=== PATIENT | male | born 1960 | race Two or more races ===

== ENCOUNTER → 2016-12-19 | Outpatient (CLI) | payer BC, OTHER ==
[~2016-12-19] MED LIST: CARV3.1212 PO; CARV3.122 PO; HYDR2TAB13 PO; HYDR8TAB PO; LEVO500T33 PO; MORP30TA3 PO; OMNIPAQUE 350 MG/ML, 100ML BOTTLE ONE; OXYC-229 PO; PANT40TA3 PO; PANT40TA5 PO
== END | disposition home or self-care (01) ==
LOC: CFH 11:53
PROVIDERS: ATTEND Internal Medicine Hematology & Oncology
DX: C18.7 Malignant neoplasm of sigmoid colon (principal); J90 Pleural effusion, not elsewhere classified; I31.3 Pericardial effusion (noninflammatory); J98.4 Other disorders of lung; R59.0 Localized enlarged lymph nodes; N13.39 Other hydronephrosis; Z90.49 Acquired absence of other specified parts of digestive tract; Z93.2 Ileostomy status
CPT/HCPCS: 71260; 74177; Q9967

== ENCOUNTER → 2016-12-24 | Outpatient (CLI) | payer BC ==
[~2016-12-24] MED LIST changes: +CAPE500T24 PO; +CARV6.2512 PO; -OMNIPAQUE 350 MG/ML, 100ML BOTTLE ONE; +ONDA4SOL2 PO
== END | disposition home or self-care (01) ==
LOC: CVU 13:20
PROVIDERS: ATTEND Internal Medicine Cardiovascular Disease
DX: I31.3 Pericardial effusion (noninflammatory) (principal); I08.1 Rheumatic disorders of both mitral and tricuspid valves; I48.91 Unspecified atrial fibrillation; Z85.038 Personal history of other malignant neoplasm of large intestine; Z92.21 Personal history of antineoplastic chemotherapy
CPT/HCPCS: 93306

== ENCOUNTER 2016-12-26 06:56 | Inpatient (IN) | payer BC ==
[~2016-12-26] VITALS: Ht 167.6 cm; Wt 91.8 kg
[~2016-12-26 06:56] MED LIST changes: -CAPE500T24 PO; -CARV6.2512 PO; -ONDA4SOL2 PO
[2016-12-26 07:43] VITALS: BP 117/67
[2016-12-26] MEDS ORDERED: CARV6.2512 PO (07:48)
[2016-12-26] MEDS ORDERED: CAPE500T24 PO (07:49)
[2016-12-26] MEDS ORDERED: ONDA4SOL2 PO (07:51)
[2016-12-26 08:14] LABS: BLOOD UREA NITROGEN 10 mg/dL (7-18)
[2016-12-26] MEDS ORDERED: FENTANYL PF 250 MCG/5ML ONE (08:19)
[2016-12-26] MEDS ORDERED: MIDAZOLAM 1 MG/ML, 5ML ONE (08:19)
[2016-12-26] MEDS ORDERED: LIDOCAINE 2%, 20ML ONE (08:39)
[2016-12-26 09:47] LABS: CYTOLOGY BODY FLUID RECD INTO PATHOLOGY; CYTOLOGY BODY FLUID SOURCE PERICARDIAL FLUID
[2016-12-26 10:00] VITALS: BP 114/77
[2016-12-26] MEDS: CARVEDILOL 6.25 MG TABLET PO SCH (17:14)
[2016-12-26] MEDS ORDERED: morphine SULFATE 10 MG/ML, 1ML IVPush ONE (17:30)
[2016-12-26] MEDS ORDERED: morphine SULFATE 10 MG/ML, 1ML ONE (17:34)
[2016-12-26] MEDS: morphine SULFATE 10 MG/ML, 1ML IVPush PRN ×2 (20:38→23:12)
[2016-12-26] MEDS: HYDROmorphone 2MG TABLET PO PRN ×2 (20:38→23:12)
[2016-12-27] MEDS: morphine SULFATE 10 MG/ML, 1ML IVPush PRN (03:11)
[2016-12-27] MEDS: HYDROmorphone 2MG TABLET PO PRN ×4 (03:11→19:41)
[2016-12-27] MEDS: CARVEDILOL 6.25 MG TABLET PO SCH ×2 (06:02→17:27)
[2016-12-27] MEDS: PANTOPROZOLE 40MG TABLET PO SCH (07:20)
[2016-12-27] MEDS ORDERED: KETOROLAC 30 MG/1 ML IV ONE (13:00)
[2016-12-27] MEDS ORDERED: KETOROLAC 30 MG/1 ML IVPush ONE (21:30)
[2016-12-28] MEDS: HYDROmorphone 2MG TABLET PO PRN ×3 (03:49→16:04)
[2016-12-28] MEDS: CARVEDILOL 6.25 MG TABLET PO SCH ×2 (06:00→18:00)
[2016-12-28] MEDS: PANTOPROZOLE 40MG TABLET PO SCH (07:48)
[2016-12-29] MEDS: HYDROmorphone 2MG TABLET PO PRN (05:45)
[2016-12-29] MEDS: CARVEDILOL 6.25 MG TABLET PO SCH (05:55)
[2016-12-29] MEDS: PANTOPROZOLE 40MG TABLET PO SCH (08:34)
== END 2016-12-29 14:35 | disposition home or self-care (01) | DRG 315 ==
LOC: CACL 06:56 → ORIP 09:35 → CCU 09:46
PROVIDERS: ADMIT Internal Medicine Cardiovascular Disease; ATTEND Internal Medicine Cardiovascular Disease
PROC: 0W9D30Z Drainage of Pericardial Cavity with Drainage Device, Percutaneous Approach (ICD-10-PCS; principal; 2016-12-26)
DX: I31.3 Pericardial effusion (noninflammatory) (principal); I48.92 Unspecified atrial flutter; C18.9 Malignant neoplasm of colon, unspecified; I48.91 Unspecified atrial fibrillation; Z90.49 Acquired absence of other specified parts of digestive tract; Z93.3 Colostomy status; Z82.49 Family history of ischemic heart disease and other diseases of the circulatory system; Z88.6 Allergy status to analgesic agent; Z88.0 Allergy status to penicillin
CPT/HCPCS: 33010; 36415; 76930; 80048; 83615; 84157; 85025; 85610; 85730; 87070; 87081; 87116; 87205; 87206; 88112; 88305; 89051; 93308; 93321; C1729; J2250; J3010; J3490; J2270

== ENCOUNTER → 2017-01-23 | Outpatient (CLI) | payer BC ==
[~2017-01-23] MED LIST changes: +CAPE500T24 PO; +CARV6.2512 PO; +ONDA4SOL2 PO
== END | disposition home or self-care (01) ==
LOC: PETCFH 07:30
PROVIDERS: ATTEND Internal Medicine Hematology & Oncology
DX: C18.7 Malignant neoplasm of sigmoid colon (principal); Z87.81 Personal history of (healed) traumatic fracture
CPT/HCPCS: 78306; A9503

== ENCOUNTER → 2017-01-27 | Outpatient (CLI) | payer BC ==
[~2017-01-27] MED LIST changes: +OMNIPAQUE 350 MG/ML, 100ML BOTTLE ONE
== END | disposition home or self-care (01) ==
LOC: CFH 01-23 08:36
PROVIDERS: ATTEND Internal Medicine Hematology & Oncology
DX: J90 Pleural effusion, not elsewhere classified (principal); I31.3 Pericardial effusion (noninflammatory); R91.8 Other nonspecific abnormal finding of lung field; R59.0 Localized enlarged lymph nodes; C18.7 Malignant neoplasm of sigmoid colon; N13.30 Unspecified hydronephrosis; M51.36 Other intervertebral disc degeneration, lumbar region; I10 Essential (primary) hypertension; I37.1 Nonrheumatic pulmonary valve insufficiency; I34.0 Nonrheumatic mitral (valve) insufficiency; M51.34 Other intervertebral disc degeneration, thoracic region
CPT/HCPCS: 71260; 74177; 93306; Q9967

== ENCOUNTER → 2017-04-28 | Outpatient (CLI) | payer BC ==
[~2017-04-28] MED LIST changes: -HYDR2TAB13 PO; +HYDR2TAB29 PO; -LEVO500T33 PO; +LEVO500T47 PO; -OMNIPAQUE 350 MG/ML, 100ML BOTTLE ONE; -OXYC-229 PO; +OXYC-307 PO
== END | disposition home or self-care (01) ==
LOC: CFH 12:09 → EDSTATUS 13:00
PROVIDERS: ATTEND Internal Medicine Cardiovascular Disease
DX: I08.1 Rheumatic disorders of both mitral and tricuspid valves (principal); I31.3 Pericardial effusion (noninflammatory); I10 Essential (primary) hypertension; Z85.038 Personal history of other malignant neoplasm of large intestine
CPT/HCPCS: 93306

== ENCOUNTER → 2017-04-29 | Outpatient (CLI) | payer BC | END | disposition home or self-care (01) | LOC: RAD 12:31 | PROVIDERS: ATTEND Internal Medicine Hematology & Oncology | DX: K43.9 Ventral hernia without obstruction or gangrene (principal); R59.0 Localized enlarged lymph nodes; R91.8 Other nonspecific abnormal finding of lung field; I25.10 Atherosclerotic heart disease of native coronary artery without angina pectoris; M51.36 Other intervertebral disc degeneration, lumbar region; C18.7 Malignant neoplasm of sigmoid colon; Z93.2 Ileostomy status | CPT/HCPCS: 71260; 74177; J1642 ==

== ENCOUNTER → 2017-07-27 | Outpatient (CLI) | payer BC ==
[2017-07-27 13:06] LABS: HEMATOCRIT 38.6 % (39.2-51.8); WHITE BLOOD COUNT 6.4 x10^3/uL (3.4-10)
[2017-07-27 13:32] LABS: ASPARTATE AMINO TRANSFERASE 40 U/L (15-37); BLOOD UREA NITROGEN 7 mg/dL (7-18)
== END | disposition home or self-care (01) ==
LOC: STAR 12:09
PROVIDERS: ATTEND Surgery
DX: Z01.818 Encounter for other preprocedural examination (principal)
CPT/HCPCS: 36415; 80053; 85025; 93005

== ENCOUNTER 2017-10-19 11:21 | Inpatient (IN) | payer BC ==
[~2017-10-19] VITALS: Ht 167.6 cm; Wt 92.8 kg
[~2017-10-19 11:21] MED LIST changes: +AMIO200T42 PO
[2017-10-19 13:12] LABS: BASOPHILS % (AUTO) 0 % (0-1); EOSINOPHILS # (AUTO) 0.01 x10^3/uL (0-0.4); EOSINOPHILS % (AUTO) 0 % (1-7); LYMPHOCYTES # (AUTO) 0.96 x10^3/uL (1-3.4); LYMPHOCYTES % (AUTO) 8 % (22-44); MD NO; MEAN CORPUSCULAR HEMOGLOBIN 25.1 pg (27.5-34.5); MEAN CORPUSCULAR HGB CONC 31.4 g/dL (33.2-36.2); MEAN CORPUSCULAR VOLUME 79.9 fL (81-97); MONOCYTES # (AUTO) 1.43 x10^3/uL (0.2-0.8); MONOCYTES % (AUTO) 12 % (2-9); NEUTROPHILS # (AUTO) 10.04 x10^3/uL (1.8-6.8); NEUTROPHILS % (AUTO) 81 % (42-75); PLATELET COUNT 308 x10^3/uL (130-400); RED BLOOD COUNT 4.86 x10^6/uL (4.38-5.82); RED CELL DISTRIBUTION WIDTH 18.8 % (9.4-14.8)
[2017-10-19 13:23] LABS: ALBUMIN 3.3 g/dL (3.4-5.0); ANION GAP 13 mmol/L (5-15); CALCIUM 8.6 mg/dL (8.5-10.1); CHLORIDE 107 mmol/L (98-107)
[2017-10-19 13:28] LABS: TROPONIN I 0.016 ng/mL (0.000-0.045)
[2017-10-19] MEDS ORDERED: FUROSEMIDE 20 MG/2 ML IV ONE (13:30)
[2017-10-19] MEDS ORDERED: HEPARIN 5,000 UNITS/ML, 1ML ONE (13:30)
[2017-10-19] MEDS ORDERED: HEPARIN 5,000 UNITS/ML, 1ML IV ONE (13:30)
[2017-10-19] MEDS ORDERED: HEPARIN 25,000 UNITS/500ML PMX 500 ML ONE (13:30)
[2017-10-19] MEDS ORDERED: SODIUM CHLORIDE 0.9%, 500ML IVBOLUS ONE (13:30)
[2017-10-19] MEDS ORDERED: FUROSEMIDE 40 MG/4 ML IVP ONE (14:00)
[2017-10-19] MEDS ORDERED: methylPREDNISolone SOD SUCC 125 MG/2 ML IVP ONE (14:00)
[2017-10-19] MEDS ORDERED: ALBUTEROL/IPRATROPIUM 2.5MG/0.5MG, 3 ML NPPB ONE (14:00)
[2017-10-19 14:18] LABS: BASOPHILS # (AUTO) 0.01 x10^3/uL (0-0.1); BASOPHILS % (AUTO) 0 % (0-1); EOSINOPHILS # (AUTO) 0.01 x10^3/uL (0-0.4); EOSINOPHILS % (AUTO) 0 % (1-7); LYMPHOCYTES # (AUTO) 0.71 x10^3/uL (1-3.4); LYMPHOCYTES % (AUTO) 7 % (22-44); MD NO; MEAN CORPUSCULAR HEMOGLOBIN 25.4 pg (27.5-34.5); MEAN CORPUSCULAR HGB CONC 31.8 g/dL (33.2-36.2); MEAN PLATELET VOLUME 8.1 fL (7.4-10.4); MONOCYTES # (AUTO) 1.18 x10^3/uL (0.2-0.8); MONOCYTES % (AUTO) 11 % (2-9); NEUTROPHILS # (AUTO) 8.68 x10^3/uL (1.8-6.8); NEUTROPHILS % (AUTO) 82 % (42-75); PLATELET COUNT 295 x10^3/uL (130-400); RED BLOOD COUNT 4.34 x10^6/uL (4.38-5.82); RED CELL DISTRIBUTION WIDTH 18.2 % (9.4-14.8)
[2017-10-19 14:21] LABS: ALANINE AMINOTRANSFERASE 174 U/L (12-78); ALBUMIN 2.9 g/dL (3.4-5.0); ANION GAP 11 mmol/L (5-15); CALCIUM 8.3 mg/dL (8.5-10.1); CHLORIDE 107 mmol/L (98-107); CREATININE 1.38 mg/dL (0.7-1.3)
[2017-10-19 14:25] LABS: ALKALINE PHOSPHATASE 126 U/L (45-117); BILIRUBIN,TOTAL 1.1 mg/dL (0.2-1.0); TOTAL PROTEIN 7.1 g/dL (6.4-8.2); TROPONIN I < 0.015 ng/mL (0.000-0.045)
[2017-10-19] MEDS: HEPARIN 25,000 UNITS/500ML PMX 500 ML IV PRN (14:54)
[2017-10-19] MEDS ORDERED: OMEP20TA62 PO (14:57)
[2017-10-19] MEDS ORDERED: HYDROmorphone 1 MG/ML, 1ML IV ONE (15:00)
[2017-10-19] MEDS ORDERED: HYDROmorphone 2 MG/ML, 1ML ONE (15:01)
[2017-10-19] MEDS ORDERED: FUROSEMIDE 20 MG/2 ML ONE ×2 (15:29→15:51)
[2017-10-19] MEDS ORDERED: FUROSEMIDE 40 MG/4 ML IV ONE (16:00)
[2017-10-19] MEDS ORDERED: ONDANSETRON 4 MG TABLET PO PRN (16:00)
[2017-10-19 17:07] VITALS: BP 140/86
[2017-10-19 18:01] LABS: ABSOLUTE RETICS # 0.124 x10^6/uL (0.5-1.5); RED BLOOD COUNT 4.35 x10^6/uL (4.38-5.82); RETICULOCYTE COUNT % 2.84 % (0.5-1.5)
[2017-10-19 19:28] VITALS: BP 116/81
[2017-10-19] MEDS: FUROSEMIDE 40 MG/4 ML IV SCH (19:47)
[2017-10-19] MEDS: CARVEDILOL 6.25 MG TABLET PO SCH (20:59)
[2017-10-19] MEDS: HEPARIN 5,000 UNITS/ML, 1ML IV PRN (21:40)
[2017-10-19] MEDS: HYDROmorphone 2MG TABLET PO PRN (21:50)
[2017-10-20 01:23] VITALS: BP 110/74
[2017-10-20] MEDS: HYDROmorphone 2MG TABLET PO PRN ×2 (02:31→08:09)
[2017-10-20 04:12] LABS: BASOPHILS % (AUTO) 0 % (0-1); EOSINOPHILS # (AUTO) 0.01 x10^3/uL (0-0.4); EOSINOPHILS % (AUTO) 0 % (1-7); LYMPHOCYTES # (AUTO) 0.76 x10^3/uL (1-3.4); LYMPHOCYTES % (AUTO) 8 % (22-44); MD NO; MEAN CORPUSCULAR HEMOGLOBIN 25.1 pg (27.5-34.5); MEAN CORPUSCULAR HGB CONC 31.7 g/dL (33.2-36.2); MEAN CORPUSCULAR VOLUME 79.2 fL (81-97); MEAN PLATELET VOLUME 7.8 fL (7.4-10.4); MONOCYTES % (AUTO) 12 % (2-9); NEUTROPHILS # (AUTO) 7.62 x10^3/uL (1.8-6.8); NEUTROPHILS % (AUTO) 80 % (42-75); PLATELET COUNT 278 x10^3/uL (130-400); RED BLOOD COUNT 4.04 x10^6/uL (4.38-5.82); RED CELL DISTRIBUTION WIDTH 18.3 % (9.4-14.8)
[2017-10-20 04:23] LABS: ANION GAP 11 mmol/L (5-15); CALCIUM 7.8 mg/dL (8.5-10.1); CHLORIDE 106 mmol/L (98-107)
[2017-10-20 04:24] LABS: CREATININE 1.58 mg/dL (0.7-1.3)
[2017-10-20] MEDS: HEPARIN 5,000 UNITS/ML, 1ML IV PRN ×3 (05:08→19:20)
[2017-10-20 06:24] VITALS: BP 96/73
[2017-10-20 08:00] VITALS: BP 100/68
[2017-10-20] MEDS: FUROSEMIDE 40 MG/4 ML IV SCH ×2 (08:09→16:14)
[2017-10-20] MEDS: PANTOPROZOLE 40MG TABLET PO SCH (08:09)
[2017-10-20] MEDS: CARVEDILOL 6.25 MG TABLET PO SCH ×2 (09:00→20:05)
[2017-10-20 09:36] LABS: MICROSCOPIC NOT IND
[2017-10-20 09:41] LABS: CULTURE INDICATED? NO
[2017-10-20] MEDS ORDERED: IRON SUCROSE COMPLEX 100MG/5ML IV SCH (11:30)
[2017-10-20 11:32] VITALS: BP 97/69
[2017-10-20] MEDS: HEPARIN 25,000 UNITS/500ML PMX 500 ML IV PRN (14:16)
[2017-10-20] MEDS ORDERED: IRON DEXTRAN IV PER PHARMACY IV PRN (19:00)
[2017-10-20 19:09] VITALS: BP 100/68
[2017-10-20] MEDS ORDERED: EPINEPHRINE 1 MG/ML, 1ML IM PRN (20:00)
[2017-10-20] MEDS ORDERED: IRON DEXTRAN COMPLEX 25 MG in SODIUM CHLORIDE 0.9% 50 ML IV ONE (20:00)
[2017-10-20] MEDS ORDERED: IRON DEXTRAN COMPLEX 1,550 MG in SODIUM CHLORIDE 0.9% 250 ML IV ONE (20:30)
[2017-10-20 22:05] LABS: OCCULT BLOOD NEGATIVE (NEGATIVE)
[2017-10-21 01:58] LABS: ALBUMIN 2.7 g/dL (3.4-5.0); ANION GAP 12 mmol/L (5-15); CALCIUM 7.7 mg/dL (8.5-10.1); CHLORIDE 103 mmol/L (98-107); CREATININE 1.53 mg/dL (0.7-1.3); MEAN CORPUSCULAR HEMOGLOBIN 25.4 pg (27.5-34.5); MEAN CORPUSCULAR HGB CONC 32.1 g/dL (33.2-36.2); MEAN PLATELET VOLUME 7.7 fL (7.4-10.4); PLATELET COUNT 314 x10^3/uL (130-400); RED BLOOD COUNT 3.99 x10^6/uL (4.38-5.82); RED CELL DISTRIBUTION WIDTH 18.2 % (9.4-14.8)
[2017-10-21 02:00] LABS: ALKALINE PHOSPHATASE 113 U/L (45-117); BILIRUBIN,TOTAL 0.6 mg/dL (0.2-1.0); TOTAL PROTEIN 6.7 g/dL (6.4-8.2)
[2017-10-21 02:01] LABS: ALANINE AMINOTRANSFERASE 113 U/L (12-78)
[2017-10-21 02:09] VITALS: BP 149/78
[2017-10-21] MEDS: HEPARIN 5,000 UNITS/ML, 1ML IV PRN ×4 (02:16→23:41)
[2017-10-21 02:20] LABS: BASOPHILS % (AUTO) 0 % (0-1); EOSINOPHILS # (AUTO) 0.04 x10^3/uL (0-0.4); EOSINOPHILS % (AUTO) 1 % (1-7); LYMPHOCYTES # (AUTO) 0.84 x10^3/uL (1-3.4); LYMPHOCYTES % (AUTO) 10 % (22-44); MD SCAN; MONOCYTES # (AUTO) 1.15 x10^3/uL (0.2-0.8); MONOCYTES % (AUTO) 13 % (2-9); NEUTROPHILS # (AUTO) 6.51 x10^3/uL (1.8-6.8); NEUTROPHILS % (AUTO) 76 % (42-75)
[2017-10-21 07:06] VITALS: BP 106/71
[2017-10-21] MEDS: PANTOPROZOLE 40MG TABLET PO SCH (07:49)
[2017-10-21] MEDS: CARVEDILOL 6.25 MG TABLET PO SCH ×2 (07:49→21:08)
[2017-10-21] MEDS: FUROSEMIDE 40 MG/4 ML IV SCH ×2 (07:49→16:56)
[2017-10-21] MEDS ORDERED: METOLAZONE 5 MG TABLET ONE (08:42)
[2017-10-21] MEDS: HEPARIN 25,000 UNITS/500ML PMX 500 ML IV PRN (12:52)
[2017-10-21 13:45] VITALS: BP 96/67
[2017-10-21] MEDS: METOLAZONE 5 MG TABLET PO SCH (16:23)
[2017-10-21] MEDS ORDERED: METOLAZONE 5 MG TABLET PO SCH ×2 (17:00)
[2017-10-21 19:10] VITALS: BP 102/61
[2017-10-21] MEDS ORDERED: KETOROLAC 30 MG/1 ML IVPush PRN (22:00)
[2017-10-21] MEDS ORDERED: HYDROmorphone 4MG TABLET PO ONE (22:00)
[2017-10-21] MEDS ORDERED: HYDROmorphone 2MG TABLET ONE (22:56)
[2017-10-21 22:59] VITALS: BP 101/69
[2017-10-22 01:46] VITALS: BP 116/79
[2017-10-22 06:25] LABS: ALBUMIN 2.6 g/dL (3.4-5.0); ANION GAP 11 mmol/L (5-15); CALCIUM 8.4 mg/dL (8.5-10.1); CHLORIDE 98 mmol/L (98-107); CREATININE 1.45 mg/dL (0.7-1.3)
[2017-10-22 06:27] LABS: ALKALINE PHOSPHATASE 118 U/L (45-117); TOTAL PROTEIN 6.7 g/dL (6.4-8.2)
[2017-10-22] MEDS: HEPARIN 5,000 UNITS/ML, 1ML IV PRN (06:30)
[2017-10-22] MEDS: HEPARIN 25,000 UNITS/500ML PMX 500 ML IV PRN (06:31)
[2017-10-22 06:39] LABS: ALANINE AMINOTRANSFERASE 99 U/L (12-78)
[2017-10-22 07:21] VITALS: BP 93/66
[2017-10-22] MEDS ORDERED: ENOXAPARIN 100 MG/ML SQ SCH (08:00)
[2017-10-22] MEDS: METOLAZONE 5 MG TABLET PO SCH (08:06)
[2017-10-22] MEDS: POTASSIUM CHLORIDE 20 MEQ PACKET PO SCH ×2 (08:08→13:18)
[2017-10-22] MEDS: CARVEDILOL 6.25 MG TABLET PO SCH (08:09)
[2017-10-22] MEDS: PANTOPROZOLE 40MG TABLET PO SCH (08:09)
[2017-10-22] MEDS: FUROSEMIDE 40 MG/4 ML IV SCH (08:31)
[2017-10-22] MEDS ORDERED: ENOX100S4 SQ (10:55)
[2017-10-22] MEDS ORDERED: FLU VACC QS2017-18 (36MOS+) UP/PF 0.5 ML IM-VACC ONE (11:30)
== END 2017-10-22 14:30 | disposition home or self-care (01) | DRG 299 ==
LOC: ED 15:29 → 3NW 15:32 → ED 15:34 → 3NW 15:35 → 4WST 10-20 06:42 → DCLOUNGE 10-22 14:10
PROVIDERS: ADMIT Internal Medicine; ATTEND Internal Medicine
DX: I82.433 Acute embolism and thrombosis of popliteal vein, bilateral (principal); I26.99 Other pulmonary embolism without acute cor pulmonale; J81.1 Chronic pulmonary edema; J90 Pleural effusion, not elsewhere classified; N17.9 Acute kidney failure, unspecified; E44.0 Moderate protein-calorie malnutrition; C78.6 Secondary malignant neoplasm of retroperitoneum and peritoneum; E87.2 Acidosis; E86.0 Dehydration; I07.1 Rheumatic tricuspid insufficiency; E83.51 Hypocalcemia; I10 Essential (primary) hypertension; I48.0 Paroxysmal atrial fibrillation; K22.4 Dyskinesia of esophagus; D50.9 Iron deficiency anemia, unspecified; R13.14 Dysphagia, pharyngoesophageal phase; Z66 Do not resuscitate; Z85.038 Personal history of other malignant neoplasm of large intestine; Z68.33 Body mass index [BMI] 33.0-33.9, adult; Z23 Encounter for immunization; Z92.21 Personal history of antineoplastic chemotherapy; Z90.49 Acquired absence of other specified parts of digestive tract; Z88.5 Allergy status to narcotic agent; Z88.6 Allergy status to analgesic agent; Z88.0 Allergy status to penicillin
CPT/HCPCS: 36415; 71046; 71275; 74220; 76700; 80048; 80053; 80074; 81003; 82040; 82272; 82728; 83540; 83550; 83605; 83735; 83880; 84484; 85018; 85025; 85045; 85520; 87040; 90686; 93005; 93306; 93970; 96365; 96375; J1170; J1644; J1650; J1750; J1756; J1940; Q0162; J7050

== ENCOUNTER → 2017-10-29 | Outpatient (CLI) | payer BC ==
[~2017-10-29] MED LIST changes: +ENOX100S4 SQ; +OMEP20TA62 PO; +OMNIPAQUE 350 MG/ML, 100ML BOTTLE ONE
== END | disposition home or self-care (01) ==
LOC: CFH 08:44
PROVIDERS: ATTEND Internal Medicine Hematology & Oncology
DX: I26.99 Other pulmonary embolism without acute cor pulmonale (principal); I31.3 Pericardial effusion (noninflammatory); J18.1 Lobar pneumonia, unspecified organism; J90 Pleural effusion, not elsewhere classified; R59.0 Localized enlarged lymph nodes; C18.7 Malignant neoplasm of sigmoid colon
CPT/HCPCS: 71260; 74177; Q9967

== ENCOUNTER 2017-11-01 18:58 | Inpatient (IN) | payer BC ==
[~2017-11-01] VITALS: Ht 167.6 cm; Wt 90.2 kg
[~2017-11-01 18:58] MED LIST changes: -OMNIPAQUE 350 MG/ML, 100ML BOTTLE ONE
[2017-11-01] MEDS ORDERED: ZIPRASIDONE 20 MG INJ IM ONE (19:30)
[2017-11-01] MEDS ORDERED: SODIUM CHLORIDE FLUSH 10ML SYR IVF ONE (19:30)
[2017-11-01 19:44] LABS: MEAN CORPUSCULAR HEMOGLOBIN 26.5 pg (27.5-34.5); MEAN CORPUSCULAR HGB CONC 31.9 g/dL (33.2-36.2); MEAN CORPUSCULAR VOLUME 83.2 fL (81-97); MEAN PLATELET VOLUME 8.3 fL (7.4-10.4); PLATELET COUNT 186 x10^3/uL (130-400); RED BLOOD COUNT 5.47 x10^6/uL (4.38-5.82); RED CELL DISTRIBUTION WIDTH 28.1 % (9.4-14.8)
[2017-11-01 19:51] LABS: PROTHROMBIN TIME 14.7 Seconds (9.6-11.5)
[2017-11-01 19:52] LABS: INTERNATIONAL NORMALIZED RATIO 1.42 (0.93-1.1)
[2017-11-01 19:56] LABS: ALBUMIN 3.4 g/dL (3.4-5.0); ANION GAP 15 mmol/L (5-15); CALCIUM 8.6 mg/dL (8.5-10.1); CHLORIDE 96 mmol/L (98-107)
[2017-11-01 19:57] LABS: ANISOCYTOSIS 2+; BASOPHILS # (AUTO) 0.02 x10^3/uL (0-0.1); BASOPHILS % (AUTO) 0 % (0-1); EOSINOPHILS # (AUTO) 0.05 x10^3/uL (0-0.4); EOSINOPHILS % (AUTO) 1 % (1-7); LYMPHOCYTES # (AUTO) 0.93 x10^3/uL (1-3.4); LYMPHOCYTES % (AUTO) 15 % (22-44); MD MORPH REVIEW ONLY; MONOCYTES # (AUTO) 0.62 x10^3/uL (0.2-0.8); MONOCYTES % (AUTO) 10 % (2-9); NEUTROPHILS # (AUTO) 4.78 x10^3/uL (1.8-6.8); NEUTROPHILS % (AUTO) 75 % (42-75)
[2017-11-01 19:58] LABS: POLYCHROMASIA 2+
[2017-11-01 19:59] LABS: <PLATELET ESTIMATE> ADEQUATE; HYPOCHROMIA 1+
[2017-11-01 20:00] LABS: LARGE PLATELETS 1+
[2017-11-01 20:02] LABS: CREATININE 2.98 mg/dL (0.7-1.3)
[2017-11-01 20:03] LABS: ALANINE AMINOTRANSFERASE 108 U/L (12-78); ALKALINE PHOSPHATASE 158 U/L (45-117); BILIRUBIN,TOTAL 1.5 mg/dL (0.2-1.0); TOTAL PROTEIN 8.1 g/dL (6.4-8.2); TROPONIN I < 0.015 ng/mL (0.000-0.045)
[2017-11-01] MEDS ORDERED: POTASSIUM CHLORIDE 20 MEQ TAB.ER.PRT ONE (20:25)
[2017-11-01] MEDS ORDERED: HEPARIN 25,000 UNITS/500ML PMX 500 ML ONE (20:26)
[2017-11-01] MEDS ORDERED: HEPARIN 5,000 UNITS/ML, 1ML ONE (20:26)
[2017-11-01] MEDS ORDERED: POTASSIUM CHLORIDE 20 MEQ TAB.ER.PRT PO ONE (20:30)
[2017-11-01] MEDS ORDERED: HEPARIN 5,000 UNITS/ML, 1ML IV ONE (20:30)
[2017-11-01] MEDS ORDERED: POTASSIUM CHLORIDE 40 MEQ in SODIUM CHLORIDE 0.9% 500 ML IV ONE (20:30)
[2017-11-01] MEDS ORDERED: HEPARIN 5,000 UNITS/ML, 1ML IV PRN (20:30)
[2017-11-01] MEDS: HEPARIN 25,000 UNITS/500ML PMX 500 ML IV PRN (20:45)
[2017-11-01] MEDS: SODIUM CHLORIDE 0.9% 1,000 ML IV SCH ×2 (22:23→22:55)
[2017-11-01] MEDS ORDERED: ACETAMINOPHEN 325 MG TABLET PO PRN (22:30)
[2017-11-01] MEDS ORDERED: ONDANSETRON 2MG/ML, 2ML IVPush PRN (22:30)
[2017-11-01] MEDS ORDERED: NOREPINEPHRINE 4 MG in SODIUM CHLORIDE 0.9% 246 ML IV PRN (22:30)
[2017-11-01] MEDS ORDERED: SODIUM CHLORIDE 0.9%, 500ML IVBOLUS ONE (23:00)
[2017-11-02 03:28] LABS: ALANINE AMINOTRANSFERASE 89 U/L (12-78); ALBUMIN 2.8 g/dL (3.4-5.0); ANION GAP 14 mmol/L (5-15); CALCIUM 8.2 mg/dL (8.5-10.1); CHLORIDE 102 mmol/L (98-107)
[2017-11-02 03:30] LABS: ALKALINE PHOSPHATASE 126 U/L (45-117); BILIRUBIN,TOTAL 1.3 mg/dL (0.2-1.0); TOTAL PROTEIN 6.6 g/dL (6.4-8.2)
[2017-11-02 03:46] LABS: MD YES; MEAN CORPUSCULAR HEMOGLOBIN 26.3 pg (27.5-34.5); MEAN CORPUSCULAR HGB CONC 31.5 g/dL (33.2-36.2); MEAN CORPUSCULAR VOLUME 83.7 fL (81-97); MEAN PLATELET VOLUME 8.7 fL (7.4-10.4); PLATELET COUNT 145 x10^3/uL (130-400); RED CELL DISTRIBUTION WIDTH 27.6 % (9.4-14.8)
[2017-11-02 03:50] LABS: ANISOCYTOSIS 2+; LYMPH#(MANUAL) 0.94 x10^3/uL (1-3.4); LYMPHS% (MANUAL) 17 % (22-44); MONOS% (MANUAL) 9 % (2-9); SEG#(MANUAL) 4.07 x10^3/uL (1.8-6.8); SEGS% (MANUAL) 74 % (42-75)
[2017-11-02 03:51] LABS: HYPOCHROMIA 1+; POLYCHROMASIA 2+
[2017-11-02 03:52] LABS: <PLATELET ESTIMATE> ADEQUATE
[2017-11-02 03:53] LABS: LARGE PLATELETS 1+
[2017-11-02] MEDS ORDERED: FUROSEMIDE 40 MG/4 ML ONE (08:38)
[2017-11-02] MEDS: FUROSEMIDE 100 MG/10 ML IV SCH ×2 (08:48→17:19)
[2017-11-02] MEDS: PANTOPROZOLE 40MG TABLET PO SCH (08:48)
[2017-11-02 10:25] LABS: MICROSCOPIC NOT IND
[2017-11-02 10:33] LABS: CULTURE INDICATED? NO
[2017-11-02] MEDS ORDERED: POTASSIUM CHLORIDE 20 MEQ TAB.ER.PRT PO ONE (19:30)
[2017-11-03 03:47] LABS: MEAN CORPUSCULAR HEMOGLOBIN 26.8 pg (27.5-34.5); MEAN CORPUSCULAR VOLUME 83.8 fL (81-97); MEAN PLATELET VOLUME 8.9 fL (7.4-10.4); PLATELET COUNT 158 x10^3/uL (130-400); RED BLOOD COUNT 5.13 x10^6/uL (4.38-5.82); RED CELL DISTRIBUTION WIDTH 28.6 % (9.4-14.8)
[2017-11-03 03:53] LABS: ALANINE AMINOTRANSFERASE 81 U/L (12-78); ALBUMIN 2.8 g/dL (3.4-5.0); ANION GAP 13 mmol/L (5-15); CALCIUM 8.3 mg/dL (8.5-10.1); CHLORIDE 100 mmol/L (98-107); CREATININE 2.26 mg/dL (0.7-1.3)
[2017-11-03 04:02] LABS: ALKALINE PHOSPHATASE 125 U/L (45-117); BILIRUBIN,TOTAL 1.2 mg/dL (0.2-1.0); TOTAL PROTEIN 6.7 g/dL (6.4-8.2)
[2017-11-03 04:34] LABS: ANISOCYTOSIS 2+; BASOPHILS % (AUTO) 0 % (0-1); EOSINOPHILS # (AUTO) 0.05 x10^3/uL (0-0.4); EOSINOPHILS % (AUTO) 1 % (1-7); HYPOCHROMIA 1+; LYMPHOCYTES # (AUTO) 0.95 x10^3/uL (1-3.4); LYMPHOCYTES % (AUTO) 15 % (22-44); MD MORPH REVIEW ONLY; MONOCYTES # (AUTO) 0.89 x10^3/uL (0.2-0.8); MONOCYTES % (AUTO) 14 % (2-9); NEUTROPHILS # (AUTO) 4.35 x10^3/uL (1.8-6.8); NEUTROPHILS % (AUTO) 70 % (42-75); POLYCHROMASIA 2+
[2017-11-03 04:35] LABS: <PLATELET ESTIMATE> ADEQUATE; <PLT MORPHOLOGY> NORMAL PLT MORPH
[2017-11-03] MEDS: HEPARIN 25,000 UNITS/500ML PMX 500 ML IV PRN (05:05)
[2017-11-03] MEDS ORDERED: FUROSEMIDE 40 MG/4 ML IV ONE (08:00)
[2017-11-03] MEDS ORDERED: POTASSIUM CHLORIDE 20 MEQ TAB.ER.PRT PO SCH (08:30)
[2017-11-03] MEDS: POTASSIUM CHLORIDE 20 MEQ TAB.ER.PRT PO SCH ×2 (08:39→16:29)
[2017-11-03] MEDS: PANTOPROZOLE 40MG TABLET PO SCH (08:39)
[2017-11-03] MEDS: HYDROmorphone 4MG TABLET PO PRN ×2 (09:40→16:30)
[2017-11-03 11:07] VITALS: BP 99/66
[2017-11-03] MEDS ORDERED: HYDROmorphone 2MG TABLET ONE (16:19)
[2017-11-03 19:14] VITALS: BP 106/74
[2017-11-04 00:57] VITALS: BP 100/74
[2017-11-04 04:25] LABS: ALANINE AMINOTRANSFERASE 72 U/L (12-78); ALBUMIN 2.8 g/dL (3.4-5.0); ANION GAP 9 mmol/L (5-15); CALCIUM 8.6 mg/dL (8.5-10.1); CHLORIDE 103 mmol/L (98-107); CREATININE 2.18 mg/dL (0.7-1.3)
[2017-11-04 04:26] LABS: MEAN CORPUSCULAR HEMOGLOBIN 26.9 pg (27.5-34.5); MEAN CORPUSCULAR HGB CONC 31.7 g/dL (33.2-36.2); MEAN CORPUSCULAR VOLUME 84.9 fL (81-97); MEAN PLATELET VOLUME 9.2 fL (7.4-10.4); PLATELET COUNT 167 x10^3/uL (130-400); RED BLOOD COUNT 5.43 x10^6/uL (4.38-5.82); RED CELL DISTRIBUTION WIDTH 28.1 % (9.4-14.8)
[2017-11-04 04:27] LABS: ALKALINE PHOSPHATASE 126 U/L (45-117); BILIRUBIN,TOTAL 1.2 mg/dL (0.2-1.0); TOTAL PROTEIN 6.9 g/dL (6.4-8.2)
[2017-11-04 06:50] LABS: MD YES
[2017-11-04 06:51] LABS: EOS#(MANUAL) 0.13 x10^3/uL (0.0-0.4); EOS% (MANUAL) 2 % (1-7); LYMPH#(MANUAL) 0.94 x10^3/uL (1-3.4); LYMPHS% (MANUAL) 14 % (22-44); MONOS% (MANUAL) 12 % (2-9); NRBC % (MANUAL) 2 % (0-1); SEG#(MANUAL) 4.82 x10^3/uL (1.8-6.8); SEGS% (MANUAL) 72 % (42-75)
[2017-11-04 06:52] LABS: ANISOCYTOSIS 2+; HYPOCHROMIA 1+; POLYCHROMASIA 1+
[2017-11-04 06:54] LABS: <PLATELET ESTIMATE> ADEQUATE; LARGE PLATELETS 1+
[2017-11-04] MEDS: PANTOPROZOLE 40MG TABLET PO SCH (08:43)
[2017-11-04] MEDS: POTASSIUM CHLORIDE 20 MEQ TAB.ER.PRT PO SCH (08:44)
[2017-11-04] MEDS ORDERED: FUROSEMIDE 40 MG/4 ML IV ONE (13:00)
[2017-11-04 14:23] VITALS: BP 100/74
[2017-11-05] MEDS ORDERED: POTASSIUM CHLORIDE 20 MEQ TAB.ER.PRT PO SCH (09:00)
== END 2017-11-04 18:00 | disposition hospice, home (50) | DRG 189 ==
LOC: ED 19:47 → EDIP 21:04 → CCU 23:00 → 3NW 11-03 09:50
PROVIDERS: ADMIT Hospitalist; ATTEND Hospitalist
DX: J96.00 Acute respiratory failure, unspecified whether with hypoxia or hypercapnia (principal); N17.9 Acute kidney failure, unspecified; E87.2 Acidosis; J90 Pleural effusion, not elsewhere classified; E87.70 Fluid overload, unspecified; I07.1 Rheumatic tricuspid insufficiency; C18.9 Malignant neoplasm of colon, unspecified; D50.9 Iron deficiency anemia, unspecified; I31.3 Pericardial effusion (noninflammatory); I27.81 Cor pulmonale (chronic); D63.8 Anemia in other chronic diseases classified elsewhere; E87.6 Hypokalemia; G89.29 Other chronic pain; I12.9 Hypertensive chronic kidney disease with stage 1 through stage 4 chronic kidney disease, or unspecified chronic kidney disease; K76.0 Fatty (change of) liver, not elsewhere classified; K76.1 Chronic passive congestion of liver; K80.20 Calculus of gallbladder without cholecystitis without obstruction; N18.9 Chronic kidney disease, unspecified; Z66 Do not resuscitate; Z79.891 Long term (current) use of opiate analgesic; Z86.711 Personal history of pulmonary embolism; Z86.718 Personal history of other venous thrombosis and embolism; Z90.49 Acquired absence of other specified parts of digestive tract; Z88.6 Allergy status to analgesic agent; Z88.0 Allergy status to penicillin; I48.0 Paroxysmal atrial fibrillation
CPT/HCPCS: 36415; 71045; 76770; 80053; 81003; 82533; 83735; 83880; 84100; 84132; 84484; 84550; 85025; 85520; 85610; 85730; 87081; 93005; 93306; 96365; 96367; J1644; J1940; J2405; J3480; J7030; J7040